=== PATIENT | female | born 1955 | race Caucasian/White ===

== ENCOUNTER 2017-04-30 14:33 | Emergency (ER) | payer BC, OTHER ==
[2017-04-30] MEDS ORDERED: Albuterol/Ipratropium 3.0-0.5 MG/3 ML Neb Soln NEB ONE (15:18)
--- NOTE | 2017-04-30 15:21 | EDM.PDOC ---
ED HPI GENERAL MEDICAL PROBLEM - General Stated Complaint: BAD COLD Time Seen by Provider: 04/30/17 14:33 Source of Information: Reports: Patient, Family History Limitations: Reports: No Limitations - History of Present Illness INITIAL COMMENTS - FREE TEXT/NARRATIVE: 61 y.o.w.pravin wentto the clinic because of a cold and was sent to the ed because her SBP was 170. An arrival, the pt c/o productive cough abd nasal congestions. No C/P or any other acute medical issues, Pt says, she never smoked or drank ETOH. BP 174/86 Pulse 76 Temp 36.6 RR 16 Pulse ox 97% on RA Onset: Today Onset Date: 04/30/17 Onset Time: 07:00 Duration: Hour(s):, Intermittent Location: Reports: Chest, Generalized Quality: Reports: Other (prod cough) Severity: Mild Improves with: Reports: Medication Worsens with: Reports: Other (when taking a deep breath) Context: Reports: Sick Contact Associated Symptoms: Reports: Cough, Shortness of Breath - Related Data Allergies Allergy/AdvReac Type Severity Reaction Status Date / Time No Known Allergies Allergy Verified 04/30/17 15:12 Home Meds: Home Meds Ciprofloxacin HCl [Cipro] 500 mg PO BID #20 tablet 04/30/17 [Rx] Past Medical History Cardiovascular History: Reports: Heart Failure, Other (See Below) Other Cardiovascular History: cardiomegaly Social & Family History - Tobacco Use Smoking Status *Q: Never Smoker - Alcohol Use Number of Drinks Per Day: N ED ROS GENERAL - Review of Systems Review Of Systems: See Below Constitutional: Reports: No Symptoms HEENT: Reports: No Symptoms Respiratory: Reports: Shortness of Breath, Cough, Sputum Cardiovascular: Reports: No Symptoms Endocrine: Reports: No Symptoms GI/Abdominal: Reports: No Symptoms : Reports: No Symptoms Musculoskeletal: Reports: No Symptoms Skin: Reports: No Symptoms Neurological: Reports: No Symptoms Psychiatric: Reports: No Symptoms Hematologic/Lymphatic: Reports: No Symptoms Immunologic: Reports: No Symptoms ED EXAM, GENERAL - Physical Exam Exam: See Below Exam Limited By: No Limitations General Appearance: Alert, WD/WN, Mild Distress Eye Exam: Bilateral Eye: Normal Inspection Ears: Normal External Exam Ear Exam: Bilateral Ear: Auricle Normal Nose: Normal Inspection, Normal Mucosa, No Blood Throat/Mouth: Normal Inspection, Normal Lips, Normal Teeth, Normal Gums, Normal Voice, No Airway Compromise Head: Atraumatic, Normocephalic Neck: Normal Inspection, Supple, Non-Tender Respiratory/Chest: No Respiratory Distress, Rhonchi, Wheezing Cardiovascular: Normal Peripheral Pulses, Regular Rate, Rhythm, No Edema, No Gallop Peripheral Pulses: 1+: Radial (R) GI/Abdominal: Normal Bowel Sounds, Soft, Non-Tender, No Organomegaly (Female) Exam: Deferred Rectal (Female) Exam: Deferred Back Exam: Normal Inspection, Full Range of Motion Extremities: Normal Inspection, Normal Range of Motion, Non-Tender, No Pedal Edema Neurological: Alert, Oriented, CN II-XII Intact, Normal Cognition Psychiatric: Normal Affect, Normal Mood Skin Exam: Warm, Dry, Intact, Normal Color, No Rash Lymphatic: No Adenopathy Course - Vital Signs Text/Narrative:: 61 y.o.w.f wentto the clinic because of a cold and was sent to the ed because her SBP was 170. An arrival, the pt c/o productive cough abd nasal congestions. No C/P or any other acute medical issues, Pt says, she never smoked or drank ETOH. BP 174/86 Pulse 76 Temp 36.6 RR 16 Pulse ox 97% on RA PE: WNWD W F with productive cough Imaging: CXR 2 view: NAD Labs: Influenza A neg. Impression Asthma, bronchitis, nasal congestion Tx: Duoneb, Cipro, Clonidine Reexam: Improved BP 155/87 on D/C Plan:D/C with instructions Last Recorded V/S: Last Vital Signs Temp 36.5 C 04/30/17 19:25 Pulse 76 04/30/17 19:25 Resp 17 04/30/17 19:25 BP 153/80 H 04/30/17 19:25 Pulse Ox 99 04/30/17 19:25 - Orders/Labs/Meds Orders: Active Orders 24 hr Category Date Time Status RT Aerosol Therapy [RC] ASDIRECTED Care 04/30/17 15:18 Active Chest 2V [CR] Stat Exams 04/30/17 15:18 Taken Meds: Medications Discontinued Medications Generic Name Dose Route Start Last Admin Trade Name Freq PRN Reason Stop Dose Admin Albuterol/Ipratropium 3 ml 04/30/17 15:18 04/30/17 15:30 Duoneb 3.0-0.5 Mg/3 Ml NEB 04/30/17 15:19 3 ml ONETIME ONE Administration Ciprofloxacin 500 mg 04/30/17 17:43 04/30/17 17:47 Ciprofloxacin Hcl PO 04/30/17 17:44 500 mg ONETIME ONE Administration Clonidine HCl 0.1 mg 04/30/17 17:43 04/30/17 17:48 Catapres PO 04/30/17 17:44 0.1 mg ONETIME STA Administration Trimethoprim/Sulfamethoxazole 1 tab 04/30/17 17:36 04/30/17 17:43 Septra Ds PO 04/30/17 17:37 Not Given ONETIME ONE Departure - Departure Time of Disposition: 17:46 Disposition: Home, Self-Care 01 Condition: Good Clinical Impression: Acute bronchitis Qualifiers: Bronchitis organism: other organism Qualified Code(s): J20.8 - Acute bronchitis due to other specified organisms Asthmatic bronchitis Qualifiers: Asthma severity: moderate - Discharge Information Prescriptions: Ciprofloxacin HCl [Cipro] 500 mg PO BID #20 tablet Instructions: Acute Bronchitis, [id number], Hypertension, [id number] Referrals: Naman Amor MD [Primary Care Provider] - Forms: ED Department Discharge, ED Return to Work/School Form Additional Instructions: Please take the meeds as recommended, please f/u with your PMD for BP recheck in 2 days, please come back if your symptoms get worse acutely - My Orders Last 24 Hours: My Active Orders 04/30/17 15:18 RT Aerosol Therapy [RC] ASDIRECTED Chest 2V [CR] Stat - Assessment/Plan Last 24 Hours: My Active Orders 04/30/17 15:18 RT Aerosol Therapy [RC] ASDIRECTED Chest 2V [CR] Stat
[2017-04-30] MEDS ORDERED: Sulfamethoxazole/Trimethoprim 800-160 MG Tab PO ONE (17:36)
[2017-04-30] MEDS ORDERED: Ciprofloxacin 500 MG Tab PO ONE (17:43)
[2017-04-30] MEDS ORDERED: cloNIDine 0.1 MG Tab PO STA (17:43)
[2017-04-30] MEDS ORDERED: Albuterol 8 GM Inhaler INH ONE (18:10)
[2017-04-30 19:26] VITALS: BP 153/80
--- NOTE | 2017-05-01 09:14 | CR ---
INDICATION: Cough. CHEST: PA and lateral views of the chest 04/30/2017, compared with 10/03/2009 and 10/30/2008, revealed slightly flattened diaphragm leaves, interdigitation of the right hemidiaphragm leaf, and prominent AP diameter, as well as mild hyperaeration, all suggesting the possibility of COPD - correlate clinically. The heart is normal in size and shape. The aorta is very minimally tortuous with minimal calcification in the arch of the aorta. No evidence of CHF is identified. An active infiltrate or effusion was not identified. Bridging hyperostotic change is noted in the mid thoracic to lower middle thoracic spine. Somewhat demineralized bony structures are suggested, which could be on the basis of osteoporosis and should be correlated clinically. There is also noted a mild dextroconcave scoliosis of the lower thoracic spine. IMPRESSION: 1. No definite acute process. 2. Possible progressive COPD - correlate clinically. 3. Minimal ASD aorta. 4. DJD spine, minimal scoliosis spine - possible osteoporosis - correlate clinically. MTDD
== END 2017-04-30 19:38 | disposition home or self-care (01) ==
LOC: FB.ED 14:33
DX: J20.8 Acute bronchitis due to other specified organisms (principal); J45.909 Unspecified asthma, uncomplicated
CPT/HCPCS: 71046; 87804; 94640; 99283; A9270; J7620

== ENCOUNTER 2017-08-03 08:00 | Inpatient (IN) | payer BC ==
[2017-08-14] MEDS ORDERED: Sodium Chloride 0.9% 10 ML Syringe FLUSH PRN (13:50)
[2017-08-14] MEDS ORDERED: cefOXitin 2 GM in Sodium Chloride 0.9% 100 ML IV ONE (13:50)
[2017-08-14] MEDS ORDERED: Lactated Ringers 1,000 ML IV SCH (14:00)
[2017-08-17] MEDS ORDERED: Lactated Ringers 1,000 ML IV SCH (09:30)
[2017-08-17] MEDS ORDERED: Sodium Chloride 0.9% 10 ML Syringe FLUSH PRN (09:30)
[2017-08-17] MEDS ORDERED: cefOXitin 1 GM Vial IV ONE ×2 (11:30→11:52)
[2017-08-17] MEDS ORDERED: Neostigmine Methylsulfate 1 MG/ML 5 ML Syringe IV ONE (11:52)
[2017-08-17] MEDS ORDERED: Midazolam 1 MG/ML 2 ML SDV IV ONE (11:52)
[2017-08-17] MEDS ORDERED: Propofol 200 MG/20 ML SDV IV ONE (11:52)
[2017-08-17] MEDS ORDERED: Glycopyrrolate 0.2 MG/ML 2 ML SDV IV ONE (11:52)
[2017-08-17] MEDS ORDERED: Succinylcholine 200 MG/10 ML MDV IV ONE (11:52)
[2017-08-17] MEDS ORDERED: Ketorolac 30 MG/ML SDV IVPUSH ONE (11:52)
[2017-08-17] MEDS ORDERED: Lactated Ringers 1,000 ML IV ONE (11:52)
[2017-08-17] MEDS ORDERED: HYDROmorphone 2 MG/ML SDV IV ONE (11:52)
[2017-08-17] MEDS ORDERED: Dexamethasone 4 MG/ML 5 ML MDV IVPUSH ONE (11:52)
[2017-08-17] MEDS ORDERED: Ondansetron 4 MG/2 ML SDV IVPUSH ONE (11:52)
[2017-08-17] MEDS ORDERED: diphenhydrAMINE 50 MG/ML SDV IVPUSH ONE (11:52)
[2017-08-17] MEDS ORDERED: Rocuronium 100 MG/10 ML MDV IV ONE (11:52)
[2017-08-17] MEDS ORDERED: fentaNYL 100 MCG/2 ML SDV IV ONE (11:52)
[2017-08-17] MEDS ORDERED: Morphine PF 10 MG/10 ML SDV EPIDUR ONE (11:52)
--- NOTE | 2017-08-17 12:36 | PREOP ---
ADMISSION DATE: 08/17/2017 This 61-year-old female presents today for sigmoid colectomy because of chronic diverticulitis. She is medically stable to proceed today. There has been no significant change in her health status since her recent examination. She has had cardiology evaluation with a recent normal stress test and is medically stable to proceed today. I have again discussed the proposed operative procedure with the patient, reviewed with her the anticipated course of the operation, and the shandra and postoperative expectations. She agrees to proceed today accepting the risks. /[id number] JULITO/DWIGHT
[2017-08-17] MEDS ORDERED: diphenhydrAMINE 50 MG/ML SDV IV PRN (13:44)
[2017-08-17] MEDS ORDERED: Nalbuphine 10 MG/1 ML Vial IVPUSH PRN (13:44)
[2017-08-17] MEDS ORDERED: Naloxone 0.4 MG/ML SDV IVPUSH PRN (13:44)
[2017-08-17] MEDS ORDERED: Ondansetron 4 MG/2 ML SDV IVPUSH PRN ×2 (13:44→15:48)
[2017-08-17] MEDS ORDERED: Ketorolac 15 MG/ML SDV IVPUSH PRN (13:50)
[2017-08-17] MEDS ORDERED: Promethazine 12.5 MG in Sodium Chloride 0.9% 50 ML IV PRN (13:50)
[2017-08-17] MEDS ORDERED: Morphine 10 MG/ML Syringe IVPUSH PRN (14:31)
--- NOTE | 2017-08-17 15:42 | PCM.OPNOTE ---
- General Post-Op/Procedure Note Date of Surgery/Procedure: 08/17/17 Operative Procedure(s): Left Colectomy with EEA Findings: Chronic Diverticulosis of the left colon Pre Op Diagnosis: chronic diverticulosis Post-Op Diagnosis: Same Anesthesia Technique: General ET Tube Primary Surgeon: Hiren Harmon Apprentice Instrument Technician: Rosalio Malik Reason Apprentice Instrument Technician Was Necessary: Assist with retraction and dissection and improve efficiency Pathology: Left Colon EBL in mLs: 100 Complications: None Condition: Good Free Text/Narrative:: Intake & Output 08/17/17 08/17/17 08/17/17 06:59 14:59 22:59 Intake Total 15 Balance 15
[2017-08-17] MEDS ORDERED: cefOXitin 2 GM in Sodium Chloride 0.9% 50 ML IV SCH (15:45)
[2017-08-17] MEDS: Lactated Ringers 1,000 ML IV SCH (17:40)
[2017-08-17] MEDS: cefOXitin 2 GM Vial IV SCH (17:48)
--- NOTE | 2017-08-17 21:06 | OR ---
DATE OF OPERATION: 08/17/2017 SURGEON: Hiren Harmon MD GOLDSMITH APPRENTICE: Rosalio Malik MD. The assistant finance manager was necessary for help with retraction and exposure, and to improve efficiency. PREOPERATIVE DIAGNOSIS: Chronic diverticulitis. POSTOPERATIVE DIAGNOSIS: Chronic diverticulitis. OPERATION PERFORMED: 1. Left colectomy. 2. End-to-end anastomosis. 3. Rigid sigmoidoscopy. INDICATIONS FOR SURGERY: This 61-year-old female has been having increasing difficulty with recurring bouts of diverticulitis of the left colon. She has had multiple episodes even within the last year. These do seem to be worsening, and she comes for surgical resection of this chronically diseased colon. FINDINGS: The patient had a moderate degree of diverticulosis with some findings of chronic disease in the left colon. This extended from the rectosigmoid junction up to the mid descending colon. The remainder of the colon and small bowel appeared normal. The patient's uterus and ovaries were atrophic. There were no palpable masses in the liver, and the remainder of the intraabdominal organs appeared normal. PROCEDURE IN DETAIL: The patient was taken to the operating room. She was given general endotracheal anesthesia and placed in a dorsal lithotomy position. The rectum was irrigated with dilute Betadine solution, and then, the abdomen and perineum were sterilely prepped and draped. A vertical lower midline abdominal incision was made. This was carried into the peritoneal cavity, and a wound protector was placed. The sigmoid colon was exposed, and using careful cautery dissection, the lateral peritoneal attachments of the sigmoid and descending colon were divided. Examination showed that the chronic diverticulitis involved enough of the colon that she would require takedown of the splenic flexure, and so this was carried out with careful blunt and cautery dissection. Once the left colon had been mobilized, the rectum was isolated and stapled across with a TA 55 stapler. The mesentery was then divided proximal to this point up to the mid descending colon, where it appeared that the disease stopped. The colon above this level appeared to be of good quality. During this dissection, the left ureter was carefully identified and preserved. The major vascular pedicles were doubly ligated with 0 Vicryl ties. The remainder of the dissection was carried out with cautery and single ties of 0 Vicryl of the smaller vessels. The colon was divided in the mid descending level after placing an anvil to a 29-Polish EEA stapler into the proximal colon. Once the descending colon had been stapled off, the center post of this anvil was brought through the wall of the colon adjacent to the staple line and a pursestring suture of 2-0 silk placed. An EEA anastomosis was then carried out between the descending colon and the rectal stump. After this had been performed, careful inspection of the anastomosis was carried out, and it was noted that the distal portion of the descending colon was somewhat dusky. There was no tension on the anastomosis, but as this area was observed, the circulation did not appear to be satisfactory, so it was felt that additional bowel would have to be removed. The rectal stump was then further dissected out and stapled across just below the original anastomosis with a curved 55 stapler cutter. Then, additional descending colon was resected up past the apparently ischemic region to an area near the splenic flexure where circulation appeared good. A small amount of additional mesentery was taken, allowing removal of the additional descending colon, and once again, the anvil of the 29-Polish EEA was placed into the proximal colon before the end of the colon near the splenic flexure. It was stapled off with a TA 55. The center post of the anvil was brought through the wall of the colon near the staple line, and a pursestring suture of 2-0 silk was placed. The rectal stump was examined, as it had been before, with a rigid sigmoidoscope. Air insufflation showed no sign of leaking at the staple line, and then, the EEA stapler was inserted into the rectum. The center post was brought out through the rectal wall near the staple line, and the stapler was then assembled, closed, and fired, creating an end-to-end anastomosis between the colon near the splenic flexure and the rectal stump. This anastomosis was carefully examined with the rigid sigmoidoscope and appeared to be of good quality, and air insufflation showed no sign of any leak at the anastomosis. The stapler retrieved 2 excellent-quality complete tissue donuts with this staple firing. The anastomosis was reinforced circumferentially with interrupted 2-0 silk sutures. After completion of this, careful inspection showed no tension on the anastomosis and visible evidence of good circulation all through the colon and rectal stump. The abdominal cavity was copiously irrigated with saline and then closed by approximating the midline fascia with a running #2 prolene and interrupted #1 PDS suture. Subcutaneous tissue was irrigated, and the skin was closed with skin josefina. A sterile dressing was placed. The patient was awakened, extubated, and taken from the operating room in satisfactory condition. ESTIMATED BLOOD LOSS: 100 mL. COMPLICATIONS: None. PROGNOSIS: Good. /[id number] JULITO/DWIGHT PENA
[2017-08-18] MEDS: cefOXitin 2 GM Vial IV SCH ×3 (00:09→12:30)
[2017-08-18] MEDS: Lactated Ringers 1,000 ML IV SCH ×3 (01:51→18:21)
--- NOTE | 2017-08-18 07:03 | PCM.SURGPN ---
- General Info Date of Service: 08/18/17 Date of Surgery/Procedure: 08/17/17 POD#: 1 Post-Op Diagnosis: Left Colectomy for Chronic Diverticulitis Functional Status: Reports: Other (Still having a lot of pain even with the epidural) - Review of Systems Pulmonary: Denies: Shortness of Breath Cardiovascular: Denies: Chest Pain Gastrointestinal: Reports: Other (c/o heartburn). Denies: Flatus, Nausea, Vomiting Musculoskeletal: Reports: Back Pain. Denies: Leg Pain - Patient Data Vitals - Most Recent: Last Vital Signs Temp 98.2 F 08/18/17 00:15 Pulse 72 08/18/17 00:15 Resp 20 08/18/17 00:15 BP 133/64 08/18/17 00:15 Pulse Ox 97 08/18/17 00:15 Weight - Most Recent: 145 lb I&O - Last 24 Hours: Intake & Output 08/17/17 08/17/17 08/18/17 14:59 22:59 06:59 Intake Total 15 709 990 Output Total 127 425 Balance 15 582 565 Lab Results Last 24 Hrs: Laboratory Results - last 24 hr 08/17/17 08/17/17 Range/Units 17:05 17:05 Hgb 12.7 (11.5-15.5) g/dL Hct 38.3 (30.0-51.3) % Potassium 4.1 (3.5-5.3) mmol/L Med Orders - Current: Current Medications Cefoxitin Sodium (Mefoxin) 2 gm IV Q6H [facility] Stop: 08/18/17 11:31 Last Admin: 08/18/17 05:55 Dose: 2 gm Diphenhydramine HCl (Benadryl) 25 mg IV ONETIME PRN PRN Reason: Pruritus Enoxaparin Sodium (Lovenox) 30 mg SUBCUT Q24H [facility] Promethazine HCl 12.5 mg/ (Sodium Chloride) 50.5 mls @ 200 mls/hr IV Q6H PRN PRN Reason: Nausea/Vomiting Lactated Ringer's (Ringers, Lactated) 1,000 mls @ 125 mls/hr IV ASDIRECTED [facility] Last Admin: 08/18/17 01:51 Dose: 125 mls/hr Ketorolac Tromethamine (Toradol) 15 mg IVPUSH Q6H PRN PRN Reason: Pain Stop: 08/22/17 13:55 Morphine Sulfate (Morphine) 2 mg IVPUSH Q1H PRN PRN Reason: PAIN Nalbuphine HCl (Nubain) 10 mg IVPUSH Q1H PRN PRN Reason: Pruritus Naloxone HCl (Narcan) 0.1 mg IVPUSH ONETIME PRN PRN Reason: Oversedation Ondansetron HCl (Zofran) 4 mg IVPUSH Q6H PRN PRN Reason: Nausea/Vomiting Sodium Chloride (Saline Flush) 10 ml FLUSH ASDIRECTED PRN PRN Reason: Keep Vein Open Discontinued Medications Cefoxitin Sodium (Mefoxin) 2 gm IV ONETIME ONE Stop: 08/17/17 11:31 Last Admin: 08/17/17 11:57 Dose: 2 gm Lactated Ringer's (Ringers, Lactated) 1,000 mls @ 125 mls/hr IV ASDIRECTED DELL Lactated Ringer's (Ringers, Lactated) 1,000 mls @ 125 mls/hr IV ASDIRECTED [facility] Last Admin: 08/17/17 11:00 Dose: 125 mls/hr Ondansetron HCl (Zofran) 4 mg IVPUSH Q6H PRN PRN Reason: Nausea/Vomiting Sodium Chloride (Saline Flush) 10 ml FLUSH ASDIRECTED PRN PRN Reason: Keep Vein Open - Exam Wound/Incisions: Healing Well, Drainage (minimal). No: Erythema General: Alert, Oriented Lungs: Normal Respiratory Effort GI/Abdominal Exam: Soft, No Distention, Tender (moderate on left side) Extremities: Non-Tender, No Pedal Edema - Problem List Review Problem List Initiated/Reviewed/Updated: Yes - My Orders Last 24 Hours: Active Orders 24 hr Category Date Time Status Patient Status [ADT] Routine ADT 08/17/17 15:43 Active Antiembolic Devices [RC] .Routine Care 08/17/17 15:48 Active Communication Order [RC] ASDIRECTED Care 08/17/17 13:44 Active Communication Order [RC] ASDIRECTED Care 08/17/17 13:44 Active Communication Order [RC] ASDIRECTED Care 08/17/17 13:44 Active Intake and Output [RC] 02,06,10,14,18,22 Care 08/17/17 13:44 Active Overnight Pulse Oximetry [RC] Click to Edit Care 08/17/17 14:11 Active Oxygen Therapy [RC] PRN Care 08/17/17 13:44 Active Pasero Opioid Induced Sedation [RC] 08,16,00 Care 08/17/17 13:44 Active RT Incentive Spirometry [RC] Q1HWA Care 08/17/17 15:42 Active Up With Assistance [RC] ASDIRECTED Care 08/17/17 15:42 Active VTE/DVT Education [RC] Click to Edit Care 08/17/17 15:48 Active Vital Signs [RC] PER UNIT ROUTINE Care 08/17/17 15:43 Active Nothing Per Oral Diet [DIET] Diet 08/17/17 Lunch Active HEMOGLOBIN/HEMATOCRIT,HH [HEME] AM Lab 08/18/17 05:11 Ordered POTASSIUM,K [CHEM] AM Lab 08/18/17 05:11 Ordered Enoxaparin [Lovenox] Med 08/18/17 09:00 Active 30 mg SUBCUT Q24H Ketorolac [Toradol] Med 08/17/17 13:50 Active 15 mg IVPUSH Q6H PRN Lactated Ringers [Ringers, Lactated] 1,000 ml Med 08/17/17 15:45 Active IV ASDIRECTED Morphine Med 08/17/17 14:31 Active 2 mg IVPUSH Q1H PRN Nalbuphine [Nubain] Med 08/17/17 13:44 Active 10 mg IVPUSH Q1H PRN Naloxone [Narcan] Med 08/17/17 13:44 Active 0.1 mg IVPUSH ONETIME PRN Ondansetron [Zofran] Med 08/17/17 15:48 Active 4 mg IVPUSH Q6H PRN Promethazine [Phenergan] 12.5 mg Med 08/17/17 13:50 Active Sodium Chloride 0.9% [Normal Saline] 50 ml IV Q6H Sodium Chloride 0.9% [Saline Flush] Med 08/17/17 09:30 Active 10 ml FLUSH ASDIRECTED PRN cefOXitin [Mefoxin] Med 08/17/17 17:30 Active 2 gm IV Q6H diphenhydrAMINE [Benadryl] Med 08/17/17 13:44 Active 25 mg IV ONETIME PRN DVT/VTE Prophylaxis Reflex [OM.PC] Per Unit Routine Ot 08/17/17 15:48 Ordered Do Not Administer Anticoagulant Meds [AST] Per Unit Ot 08/17/17 13:44 Ordered Routine Do Not Administer IV Narcs or Sedatives [AST] Per Unit Ot 08/17/17 13:44 Ordered Routine Peripheral IV Insertion Adult [OM.PC] Routine Ot 08/17/17 09:30 Ordered Pulse Oximetry Continuous Monitoring [OM.PC] Routine Ot 08/17/17 14:10 Ordered Sequential Compression Device [OM.PC] Routine Ot 08/17/17 09:30 Ordered Medication Orders Cefoxitin Sodium (Mefoxin) 2 gm IV Q6H [facility] Stop: 08/18/17 11:31 Last Admin: 08/18/17 05:55 Dose: 2 gm Admin: 08/18/17 00:09 Dose: 2 gm Admin: 08/17/17 17:48 Dose: 2 gm Diphenhydramine HCl (Benadryl) 25 mg IV ONETIME PRN PRN Reason: Pruritus Enoxaparin Sodium (Lovenox) 30 mg SUBCUT Q24H [facility] Promethazine HCl 12.5 mg/ (Sodium Chloride) 50.5 mls @ 200 mls/hr IV Q6H PRN PRN Reason: Nausea/Vomiting Lactated Ringer's (Ringers, Lactated) 1,000 mls @ 125 mls/hr IV ASDIRECTED [facility] Last Admin: 08/18/17 01:51 Dose: 125 mls/hr Infusion: 08/18/17 01:40 Dose: 125 mls/hr Admin: 08/17/17 17:40 Dose: 125 mls/hr Ketorolac Tromethamine (Toradol) 15 mg IVPUSH Q6H PRN PRN Reason: Pain Stop: 08/22/17 13:55 Morphine Sulfate (Morphine) 2 mg IVPUSH Q1H PRN PRN Reason: PAIN Nalbuphine HCl (Nubain) 10 mg IVPUSH Q1H PRN PRN Reason: Pruritus Naloxone HCl (Narcan) 0.1 mg IVPUSH ONETIME PRN PRN Reason: Oversedation Ondansetron HCl (Zofran) 4 mg IVPUSH Q6H PRN PRN Reason: Nausea/Vomiting Sodium Chloride (Saline Flush) 10 ml FLUSH ASDIRECTED PRN PRN Reason: Keep Vein Open - Assessment Assessment (Free Text/Narrative):: POD#1 Left Colectomy - pain not well controlled heartburn vs stable uo good - Plan Plan (Free Text/Narrative):: Change Toradol to routine encouraged ambulation and IS continue IV and support
[2017-08-18] MEDS ORDERED: Aluminum Hydroxide/Magnesium Hydroxide Susp 30 ML Cup PO PRN (07:04)
[2017-08-18] MEDS: Ketorolac 15 MG/ML SDV IVPUSH SCH ×3 (07:10→20:10)
[2017-08-18] MEDS ORDERED: Morphine PF 10 MG/10 ML SDV EPIDUR ONE ×2 (08:00→09:26)
[2017-08-18] MEDS ORDERED: fentaNYL 100 MCG/2 ML SDV EPIDUR ONE (08:00)
[2017-08-18] MEDS: Pantoprazole 40 MG Vial IVPUSH SCH (08:21)
[2017-08-18] MEDS: Enoxaparin 30 MG/0.3 ML Syringe SUBCUT SCH (08:30)
[2017-08-18] MEDS ORDERED: ROPIVACAINE EPIDUR ONE (09:26)
[2017-08-18] MEDS ORDERED: FENTANYL EPIDUR ONE (09:26)
--- NOTE | 2017-08-18 10:10 | PCM.PN ---
- General Info Date of Service: 08/18/17 Admission Dx/Problem (Free Text): 08-18-17 2215 please refer to anesthesia record for epidural pain management note and meds given.Patient rating pain at zero out of ten after injection.pain has been 9 out of ten.Report given to Shruthi Winter including time of peak side effects at 1530 - Patient Data Vitals - Most Recent: Last Vital Signs Temp 98.2 F 08/18/17 00:15 Pulse 72 08/18/17 05:30 Resp 20 08/18/17 05:30 BP 138/69 08/18/17 05:30 Pulse Ox 97 08/18/17 07:10 Weight - Most Recent: 145 lb I&O - Last 24 Hours: Intake & Output 08/17/17 08/18/17 08/18/17 22:59 06:59 14:59 Intake Total 709 990 Output Total 127 425 Balance 582 565 Lab Results Last 24 Hours: Laboratory Results - last 24 hr 08/17/17 08/17/17 08/18/17 Range/Units 17:05 17:05 07:03 Hgb 12.7 11.6 (11.5-15.5) g/dL Hct 38.3 34.6 (30.0-51.3) % Potassium 4.1 (3.5-5.3) mmol/L 08/18/17 Range/Units 07:03 Hgb (11.5-15.5) g/dL Hct (30.0-51.3) % Potassium 4.3 (3.5-5.3) mmol/L Med Orders - Current: Current Medications Al Hydroxide/Mg Hydroxide (Mag-Al Susp) 30 ml PO Q4H PRN PRN Reason: Heartburn Last Admin: 08/18/17 07:46 Dose: 30 ml Cefoxitin Sodium (Mefoxin) 2 gm IV Q6H [facility] Stop: 08/18/17 11:31 Last Admin: 08/18/17 05:55 Dose: 2 gm Diphenhydramine HCl (Benadryl) 25 mg IV ONETIME PRN PRN Reason: Pruritus Enoxaparin Sodium (Lovenox) 30 mg SUBCUT Q24H [facility] Last Admin: 08/18/17 08:30 Dose: 30 mg Promethazine HCl 12.5 mg/ (Sodium Chloride) 50.5 mls @ 200 mls/hr IV Q6H PRN PRN Reason: Nausea/Vomiting Lactated Ringer's (Ringers, Lactated) 1,000 mls @ 125 mls/hr IV ASDIRECTED [facility] Last Admin: 08/18/17 01:51 Dose: 125 mls/hr Ketorolac Tromethamine (Toradol) 15 mg IVPUSH Q6H [facility] Last Admin: 08/18/17 07:10 Dose: 15 mg Morphine Sulfate (Morphine) 2 mg IVPUSH Q1H PRN PRN Reason: PAIN Last Admin: 08/18/17 08:29 Dose: 2 mg Nalbuphine HCl (Nubain) 10 mg IVPUSH Q1H PRN PRN Reason: Pruritus Naloxone HCl (Narcan) 0.1 mg IVPUSH ONETIME PRN PRN Reason: Oversedation Ondansetron HCl (Zofran) 4 mg IVPUSH Q6H PRN PRN Reason: Nausea/Vomiting Pantoprazole Sodium (Protonix Iv) 40 mg IVPUSH DAILY [facility] Last Admin: 08/18/17 08:21 Dose: 40 mg Sodium Chloride (Saline Flush) 10 ml FLUSH ASDIRECTED PRN PRN Reason: Keep Vein Open Discontinued Medications Cefoxitin Sodium (Mefoxin) 2 gm IV ONETIME ONE Stop: 08/17/17 11:31 Last Admin: 08/17/17 11:57 Dose: 2 gm Lactated Ringer's (Ringers, Lactated) 1,000 mls @ 125 mls/hr IV ASDIRECTED [facility] Lactated Ringer's (Ringers, Lactated) 1,000 mls @ 125 mls/hr IV ASDIRECTED [facility] Last Admin: 08/17/17 11:00 Dose: 125 mls/hr Ketorolac Tromethamine (Toradol) 15 mg IVPUSH Q6H PRN PRN Reason: Pain Stop: 08/22/17 13:55 Ondansetron HCl (Zofran) 4 mg IVPUSH Q6H PRN PRN Reason: Nausea/Vomiting Sodium Chloride (Saline Flush) 10 ml FLUSH ASDIRECTED PRN PRN Reason: Keep Vein Open - Problem List Review Problem List Initiated/Reviewed/Updated: No - My Orders Last 24 Hours: My Active Orders 08/17/17 13:44 Communication Order [RC] ASDIRECTED Communication Order [RC] ASDIRECTED Communication Order [RC] ASDIRECTED Intake and Output [RC] 02,06,10,14,18,22 Oxygen Therapy [RC] PRN Pasero Opioid Induced Sedation [RC] 08,16,00 Nalbuphine [Nubain] 10 mg IVPUSH Q1H PRN Naloxone [Narcan] 0.1 mg IVPUSH ONETIME PRN diphenhydrAMINE [Benadryl] 25 mg IV ONETIME PRN Do Not Administer Anticoagulant Meds [AST] Per Unit Routine Do Not Administer IV Narcs or Sedatives [AST] Per Unit Routine 08/17/17 13:50 Promethazine [Phenergan] 12.5 mg Sodium Chloride 0.9% [Normal Saline] 50 ml IV Q6H 08/17/17 14:10 Pulse Oximetry Continuous Monitoring [OM.PC] Routine 08/17/17 14:11 Overnight Pulse Oximetry [RC] Click to Edit 08/17/17 14:31 Morphine 2 mg IVPUSH Q1H PRN
[2017-08-19] MEDS: Ketorolac 15 MG/ML SDV IVPUSH SCH ×4 (02:01→19:56)
[2017-08-19] MEDS: Lactated Ringers 1,000 ML IV SCH ×3 (02:23→21:09)
--- NOTE | 2017-08-19 07:41 | PCM.SURGPN ---
- General Info Date of Service: 08/19/17 Date of Surgery/Procedure: 08/17/17 POD#: 2 Post-Op Diagnosis: Chronic Diverticulitis Functional Status: Reports: Pain Controlled (improved control with Toradol and increased epidural dose) - Review of Systems Pulmonary: Reports: No Symptoms (doing better with IS) Gastrointestinal: Denies: Flatus Musculoskeletal: Denies: Leg Pain - Patient Data Vitals - Most Recent: Last Vital Signs Temp 98.1 F 08/19/17 05:30 Pulse 60 08/19/17 05:30 Resp 16 08/19/17 05:30 BP 108/60 08/19/17 05:30 Pulse Ox 97 08/19/17 05:30 Weight - Most Recent: 145 lb I&O - Last 24 Hours: Intake & Output 08/18/17 08/19/17 08/19/17 22:59 06:59 14:59 Intake Total 1060 941 Output Total 525 610 Balance 535 331 Lab Results Last 24 Hrs: Laboratory Results - last 24 hr 08/18/17 08/18/17 08/19/17 Range/Units 07:03 07:03 06:05 Hgb 11.6 (11.5-15.5) g/dL Hct 34.6 (30.0-51.3) % Potassium 4.3 4.2 (3.5-5.3) mmol/L Med Orders - Current: Current Medications Al Hydroxide/Mg Hydroxide (Mag-Al Susp) 30 ml PO Q4H PRN PRN Reason: Heartburn Last Admin: 08/18/17 07:46 Dose: 30 ml Diphenhydramine HCl (Benadryl) 25 mg IV ONETIME PRN PRN Reason: Pruritus Enoxaparin Sodium (Lovenox) 30 mg SUBCUT Q24H [facility] Last Admin: 08/18/17 08:30 Dose: 30 mg Promethazine HCl 12.5 mg/ (Sodium Chloride) 50.5 mls @ 200 mls/hr IV Q6H PRN PRN Reason: Nausea/Vomiting Lactated Ringer's (Ringers, Lactated) 1,000 mls @ 100 mls/hr IV ASDIRECTED [facility] Last Admin: 08/19/17 02:23 Dose: 125 mls/hr Ketorolac Tromethamine (Toradol) 15 mg IVPUSH Q6H [facility] Stop: 08/23/17 02:01 Last Admin: 08/19/17 02:01 Dose: 15 mg Morphine Sulfate (Morphine) 2 mg IVPUSH Q1H PRN PRN Reason: PAIN Last Admin: 08/18/17 08:29 Dose: 2 mg Nalbuphine HCl (Nubain) 10 mg IVPUSH Q1H PRN PRN Reason: Pruritus Naloxone HCl (Narcan) 0.1 mg IVPUSH ONETIME PRN PRN Reason: Oversedation Ondansetron HCl (Zofran) 4 mg IVPUSH Q6H PRN PRN Reason: Nausea/Vomiting Pantoprazole Sodium (Protonix Iv) 40 mg IVPUSH DAILY [facility] Last Admin: 08/18/17 08:21 Dose: 40 mg Sodium Chloride (Saline Flush) 10 ml FLUSH ASDIRECTED PRN PRN Reason: Keep Vein Open Discontinued Medications Cefoxitin Sodium (Mefoxin) 2 gm IV ONETIME ONE Stop: 08/17/17 11:31 Last Admin: 08/17/17 11:57 Dose: 2 gm Cefoxitin Sodium (Mefoxin) 2 gm IV Q6H [facility] Stop: 08/18/17 11:31 Last Admin: 08/18/17 12:30 Dose: 2 gm Lactated Ringer's (Ringers, Lactated) 1,000 mls @ 125 mls/hr IV ASDIRECTED [facility] Lactated Ringer's (Ringers, Lactated) 1,000 mls @ 125 mls/hr IV ASDIRECTED [facility] Last Admin: 08/17/17 11:00 Dose: 125 mls/hr Ketorolac Tromethamine (Toradol) 15 mg IVPUSH Q6H PRN PRN Reason: Pain Stop: 08/22/17 13:55 Ondansetron HCl (Zofran) 4 mg IVPUSH Q6H PRN PRN Reason: Nausea/Vomiting Sodium Chloride (Saline Flush) 10 ml FLUSH ASDIRECTED PRN PRN Reason: Keep Vein Open - Exam Wound/Incisions: Healing Well, No Drainage. No: Erythema General: Alert, Oriented Lungs: Normal Respiratory Effort GI/Abdominal Exam: Soft, Non-Tender (except mild near incision) Extremities: Non-Tender, No Pedal Edema - Problem List Review Problem List Initiated/Reviewed/Updated: Yes - My Orders Last 24 Hours: Active Orders 24 hr Category Date Time Status Communication Order [] 08,16,00 Care 08/18/17 14:24 Active Remove Valdes Catheter [Urinary Catheter Removal] [] Care 08/19/17 07:35 Ordered Per Unit Routine Alum Hydroxide/Mag Hydroxide [Mag-Al Susp] Med 08/18/17 07:04 Active 30 ml PO Q4H PRN Enoxaparin [Lovenox] Med 08/18/17 09:00 Active 30 mg SUBCUT Q24H Ketorolac [Toradol] Med 08/18/17 08:00 Active 15 mg IVPUSH Q6H Pantoprazole [ProTONIX IV] Med 08/18/17 09:00 Active 40 mg IVPUSH DAILY Medication Orders Al Hydroxide/Mg Hydroxide (Mag-Al Susp) 30 ml PO Q4H PRN PRN Reason: Heartburn Last Admin: 08/18/17 07:46 Dose: 30 ml Diphenhydramine HCl (Benadryl) 25 mg IV ONETIME PRN PRN Reason: Pruritus Enoxaparin Sodium (Lovenox) 30 mg SUBCUT Q24H [facility] Last Admin: 08/18/17 08:30 Dose: 30 mg Promethazine HCl 12.5 mg/ (Sodium Chloride) 50.5 mls @ 200 mls/hr IV Q6H PRN PRN Reason: Nausea/Vomiting Lactated Ringer's (Ringers, Lactated) 1,000 mls @ 100 mls/hr IV ASDIRECTED [facility] Last Admin: 08/19/17 02:23 Dose: 125 mls/hr Infusion: 08/19/17 02:21 Dose: 125 mls/hr Admin: 08/18/17 18:21 Dose: 125 mls/hr Infusion: 08/18/17 18:21 Dose: 125 mls/hr Admin: 08/18/17 10:21 Dose: 125 mls/hr Infusion: 08/18/17 09:51 Dose: 125 mls/hr Admin: 08/18/17 01:51 Dose: 125 mls/hr Infusion: 08/18/17 01:40 Dose: 125 mls/hr Admin: 08/17/17 17:40 Dose: 125 mls/hr Ketorolac Tromethamine (Toradol) 15 mg IVPUSH Q6H [facility] Stop: 08/23/17 02:01 Last Admin: 08/19/17 02:01 Dose: 15 mg Admin: 08/18/17 20:10 Dose: 15 mg Admin: 08/18/17 14:36 Dose: 15 mg Admin: 08/18/17 07:10 Dose: 15 mg Morphine Sulfate (Morphine) 2 mg IVPUSH Q1H PRN PRN Reason: PAIN Last Admin: 08/18/17 08:29 Dose: 2 mg Nalbuphine HCl (Nubain) 10 mg IVPUSH Q1H PRN PRN Reason: Pruritus Naloxone HCl (Narcan) 0.1 mg IVPUSH ONETIME PRN PRN Reason: Oversedation Ondansetron HCl (Zofran) 4 mg IVPUSH Q6H PRN PRN Reason: Nausea/Vomiting Pantoprazole Sodium (Protonix Iv) 40 mg IVPUSH DAILY [facility] Last Admin: 08/18/17 08:21 Dose: 40 mg Sodium Chloride (Saline Flush) 10 ml FLUSH ASDIRECTED PRN PRN Reason: Keep Vein Open - Assessment Assessment (Free Text/Narrative):: POD#2 Left Colectomy - doing well Afebrile, UO good Labs good wound healing well - Plan Plan (Free Text/Narrative):: Will slow IV rate DC Valdes Continuing Epidural for pain control Continue Ambulation and IS
--- NOTE | 2017-08-19 08:33 | PCM.SN ---
- Free Text/Narrative Note: 0805,patient states she is having no pain and has not been itching from epidural narcotic.After negative aspiration injected epidural with Duramorph 6 mgs,fentanyl 2 cc's and normal saline PF 2 cc's.Gave report to Shruthi Winter including peak side effects of fentanyl and Duramorph.SAO2 monitor is on patient.
[2017-08-19] MEDS: Enoxaparin 30 MG/0.3 ML Syringe SUBCUT SCH (08:51)
[2017-08-19] MEDS: Pantoprazole 40 MG Vial IVPUSH SCH (08:55)
[2017-08-20] MEDS: Ketorolac 15 MG/ML SDV IVPUSH SCH ×4 (02:00→20:27)
[2017-08-20] MEDS: Lactated Ringers 1,000 ML IV SCH (07:08)
--- NOTE | 2017-08-20 07:20 | PCM.SURGPN ---
- General Info Date of Service: 08/20/17 Date of Surgery/Procedure: 08/17/17 POD#: 3 Post-Op Diagnosis: Chronic Diverticulitis Functional Status: Reports: Pain Controlled - Review of Systems General: Denies: Fever, Chills Pulmonary: Reports: No Symptoms Gastrointestinal: Reports: Flatus (also had small bm) Genitourinary: Reports: No Symptoms Musculoskeletal: Denies: Leg Pain - Patient Data Vitals - Most Recent: Last Vital Signs Temp 98.3 F 08/20/17 04:00 Pulse 58 L 08/20/17 04:00 Resp 16 08/20/17 04:00 BP 135/67 08/20/17 04:00 Pulse Ox 93 L 08/20/17 04:00 Weight - Most Recent: 145 lb I&O - Last 24 Hours: Intake & Output 08/19/17 08/20/17 08/20/17 22:59 06:59 14:59 Intake Total 758 838 Output Total 450 1200 Balance 308 -362 Med Orders - Current: Current Medications Al Hydroxide/Mg Hydroxide (Mag-Al Susp) 30 ml PO Q4H PRN PRN Reason: Heartburn Last Admin: 08/18/17 07:46 Dose: 30 ml Diphenhydramine HCl (Benadryl) 25 mg IV ONETIME PRN PRN Reason: Pruritus Enoxaparin Sodium (Lovenox) 30 mg SUBCUT Q24H [facility] Last Admin: 08/19/17 08:51 Dose: 30 mg Promethazine HCl 12.5 mg/ (Sodium Chloride) 50.5 mls @ 200 mls/hr IV Q6H PRN PRN Reason: Nausea/Vomiting Lactated Ringer's (Ringers, Lactated) 1,000 mls @ 50 mls/hr IV ASDIRECTED [facility] Last Infusion: 08/20/17 07:12 Dose: 50 mls/hr Ketorolac Tromethamine (Toradol) 15 mg IVPUSH Q6H [facility] Stop: 08/23/17 02:01 Last Admin: 08/20/17 02:00 Dose: 15 mg Morphine Sulfate (Morphine) 2 mg IVPUSH Q1H PRN PRN Reason: PAIN Last Admin: 08/18/17 08:29 Dose: 2 mg Nalbuphine HCl (Nubain) 10 mg IVPUSH Q1H PRN PRN Reason: Pruritus Naloxone HCl (Narcan) 0.1 mg IVPUSH ONETIME PRN PRN Reason: Oversedation Ondansetron HCl (Zofran) 4 mg IVPUSH Q6H PRN PRN Reason: Nausea/Vomiting Pantoprazole Sodium (Protonix Iv) 40 mg IVPUSH DAILY [facility] Last Admin: 08/19/17 08:55 Dose: 40 mg Sodium Chloride (Saline Flush) 10 ml FLUSH ASDIRECTED PRN PRN Reason: Keep Vein Open Discontinued Medications Cefoxitin Sodium (Mefoxin) 2 gm IV ONETIME ONE Stop: 08/17/17 11:31 Last Admin: 08/17/17 11:57 Dose: 2 gm Cefoxitin Sodium (Mefoxin) 2 gm IV Q6H [facility] Stop: 08/18/17 11:31 Last Admin: 08/18/17 12:30 Dose: 2 gm Cefoxitin Sodium (Mefoxin) 2 gm IV .STK-MED ONE Stop: 08/17/17 11:53 Dexamethasone (Dexamethasone) 8 mg IVPUSH .STK-MED ONE Stop: 08/17/17 11:53 Diphenhydramine HCl (Benadryl) 25 mg IVPUSH .STK-MED ONE Stop: 08/17/17 11:53 Fentanyl (Sublimaze) 100 mcg EPIDUR .STK-MED ONE Stop: 08/18/17 08:01 Fentanyl (Sublimaze) 200 mcg IV .STK-MED ONE Stop: 08/17/17 11:53 Glycopyrrolate (Glycopyrrolate) 0.4 mg IV .STK-MED ONE Stop: 08/17/17 11:53 Hydromorphone HCl (Dilaudid) 1 mg IV .STK-MED ONE Stop: 08/17/17 11:53 Lactated Ringer's (Ringers, Lactated) 1,000 mls @ 125 mls/hr IV ASDIRECTED [facility] Lactated Ringer's (Ringers, Lactated) 1,000 mls @ 125 mls/hr IV ASDIRECTED [facility] Last Admin: 08/17/17 11:00 Dose: 125 mls/hr Fentanyl 100 mcg/ Ropivacaine 12 mls @ as directed EPIDUR .STK-MED ONE Stop: 08/18/17 09:27 Lactated Ringer's (Ringers, Lactated) 1,000 mls @ as directed IV .STK-MED ONE Stop: 08/17/17 11:53 Ketorolac Tromethamine (Toradol) 15 mg IVPUSH Q6H PRN PRN Reason: Pain Stop: 08/22/17 13:55 Ketorolac Tromethamine (Toradol) 30 mg IVPUSH .STK-MED ONE Stop: 08/17/17 11:53 Midazolam HCl (Versed 1 Mg/Ml) 2 mg IV .STK-MED ONE Stop: 08/17/17 11:53 Morphine Sulfate (Duramorph Pf) 6 mg EPIDUR .STK-MED ONE Stop: 08/18/17 08:01 Morphine Sulfate (Duramorph Pf) 6 mg EPIDUR .STK-MED ONE Stop: 08/18/17 09:27 Morphine Sulfate (Duramorph Pf) 4 mg EPIDUR .STK-MED ONE Stop: 08/17/17 11:53 Neostigmine Methylsulfate (Neostigmine) 3 mg IV .STK-MED ONE Stop: 08/17/17 11:53 Ondansetron HCl (Zofran) 4 mg IVPUSH Q6H PRN PRN Reason: Nausea/Vomiting Ondansetron HCl (Zofran) 4 mg IVPUSH .STK-MED ONE Stop: 08/17/17 11:53 Propofol (Diprivan 20 Ml) 150 mg IV .STK-MED ONE Stop: 08/17/17 11:53 Rocuronium [place] (Zemuron) 65 mg IV .STK-MED ONE Stop: 08/17/17 11:53 Sodium Chloride (Saline Flush) 10 ml FLUSH ASDIRECTED PRN PRN Reason: Keep Vein Open Succinylcholine Chloride (Quelicin) 100 mg IV .STK-MED ONE Stop: 08/17/17 11:53 - Exam Wound/Incisions: Healing Well. No: Erythema General: Alert, Oriented Lungs: Normal Respiratory Effort GI/Abdominal Exam: Soft, Tender (mild diffuse tenderness) Extremities: Non-Tender, No Pedal Edema - Problem List Review Problem List Initiated/Reviewed/Updated: Yes - My Orders Last 24 Hours: Active Orders 24 hr Category Date Time Status Clear Liquid Diet [DIET] Diet 08/20/17 Breakfast Ordered Medication Orders Al Hydroxide/Mg Hydroxide (Mag-Al Susp) 30 ml PO Q4H PRN PRN Reason: Heartburn Last Admin: 08/18/17 07:46 Dose: 30 ml Diphenhydramine HCl (Benadryl) 25 mg IV ONETIME PRN PRN Reason: Pruritus Enoxaparin Sodium (Lovenox) 30 mg SUBCUT Q24H [facility] Last Admin: 08/19/17 08:51 Dose: 30 mg Admin: 08/18/17 08:30 Dose: 30 mg Promethazine HCl 12.5 mg/ (Sodium Chloride) 50.5 mls @ 200 mls/hr IV Q6H PRN PRN Reason: Nausea/Vomiting Lactated Ringer's (Ringers, Lactated) 1,000 mls @ 50 mls/hr IV ASDIRECTED [facility] Last Infusion: 08/20/17 07:12 Dose: 50 mls/hr Admin: 08/20/17 07:08 Dose: 125 mls/hr Infusion: 08/20/17 05:09 Dose: 125 mls/hr Admin: 08/19/17 21:09 Dose: 125 mls/hr Infusion: 08/19/17 19:08 Dose: 125 mls/hr Admin: 08/19/17 11:08 Dose: 125 mls/hr Infusion: 08/19/17 11:08 Dose: 125 mls/hr Admin: 08/19/17 02:23 Dose: 125 mls/hr Infusion: 08/19/17 02:21 Dose: 125 mls/hr Admin: 08/18/17 18:21 Dose: 125 mls/hr Infusion: 08/18/17 18:21 Dose: 125 mls/hr Admin: 08/18/17 10:21 Dose: 125 mls/hr Infusion: 08/18/17 09:51 Dose: 125 mls/hr Admin: 08/18/17 01:51 Dose: 125 mls/hr Infusion: 08/18/17 01:40 Dose: 125 mls/hr Admin: 08/17/17 17:40 Dose: 125 mls/hr Ketorolac Tromethamine (Toradol) 15 mg IVPUSH Q6H [facility] Stop: 08/23/17 02:01 Last Admin: 08/20/17 02:00 Dose: 15 mg Admin: 05/23/18 19:56 Dose: 15 mg Admin: 08/19/17 14:17 Dose: 15 mg Admin: 08/19/17 08:52 Dose: 15 mg Admin: 08/19/17 02:01 Dose: 15 mg Admin: 08/18/17 20:10 Dose: 15 mg Admin: 08/18/17 14:36 Dose: 15 mg Admin: 08/18/17 07:10 Dose: 15 mg Morphine Sulfate (Morphine) 2 mg IVPUSH Q1H PRN PRN Reason: PAIN Last Admin: 08/18/17 08:29 Dose: 2 mg Nalbuphine HCl (Nubain) 10 mg IVPUSH Q1H PRN PRN Reason: Pruritus Naloxone HCl (Narcan) 0.1 mg IVPUSH ONETIME PRN PRN Reason: Oversedation Ondansetron HCl (Zofran) 4 mg IVPUSH Q6H PRN PRN Reason: Nausea/Vomiting Pantoprazole Sodium (Protonix Iv) 40 mg IVPUSH DAILY [facility] Last Admin: 08/19/17 08:55 Dose: 40 mg Admin: 08/18/17 08:21 Dose: 40 mg Sodium Chloride (Saline Flush) 10 ml FLUSH ASDIRECTED PRN PRN Reason: Keep Vein Open - Assessment Assessment (Free Text/Narrative):: POD#3 Left Colectomy - doing well GI function beginning to return. pain controlled well with epidural and Toradol Path report showed benign disease and has been discussed with patient - Plan Plan (Free Text/Narrative):: Clear Liquid diet slow IV
[2017-08-20] MEDS ORDERED: Morphine PF 10 MG/10 ML SDV EPIDUR ONE (07:30)
[2017-08-20] MEDS ORDERED: fentaNYL 100 MCG/2 ML SDV EPIDUR ONE (07:30)
--- NOTE | 2017-08-20 07:41 | PCM.SN ---
- Free Text/Narrative Note: 0730,Patient states she is having no pain and has had no itching.After negative aspiration of epidural cathedar,Duramorph 6mgs,fentanyl 2cc's and saline 0.9%PF was injected.The cathedar was removed and tip entact ,skin looked good at site.Instructed Scarlett Veloz RN that patient should not have Lovenevx untill 0930 and that the peak side effects for Fentanyl will be 1000 and for Duramorph 1330.
[2017-08-20] MEDS: Pantoprazole 40 MG Vial IVPUSH SCH (09:59)
[2017-08-20] MEDS: Enoxaparin 30 MG/0.3 ML Syringe SUBCUT SCH (11:27)
[2017-08-20] MEDS ORDERED: Acetaminophen/HYDROcodone 325-5 MG Tab PO PRN (19:26)
[2017-08-21] MEDS: Ketorolac 15 MG/ML SDV IVPUSH SCH (02:00)
[2017-08-21] MEDS: Lactated Ringers 1,000 ML IV SCH (02:58)
[2017-08-21] MEDS: Pantoprazole 40 MG Tab.CR PO SCH (06:19)
--- NOTE | 2017-08-21 07:47 | PCM.SURGPN ---
- General Info Date of Service: 08/21/17 Date of Surgery/Procedure: 08/17/17 POD#: 4 Post-Op Diagnosis: Chronic Diverticulitis Functional Status: Reports: Pain Controlled (Epidural now out) - Review of Systems Pulmonary: Reports: No Symptoms Gastrointestinal: Reports: Flatus (having BM's). Denies: Nausea, Vomiting Musculoskeletal: Denies: Leg Pain - Patient Data Vitals - Most Recent: Last Vital Signs Temp 98.5 F 08/21/17 07:30 Pulse 67 08/21/17 07:30 Resp 18 08/21/17 07:30 BP 154/83 H 08/21/17 07:30 Pulse Ox 96 08/21/17 07:30 Weight - Most Recent: 145 lb I&O - Last 24 Hours: Intake & Output 08/20/17 08/21/17 08/21/17 22:59 06:59 14:59 Intake Total 1520 418 Output Total 1700 1700 Balance -180 -1282 Med Orders - Current: Current Medications Hydrocodone Bitart/Acetaminophen ([place] 325-5 Mg) 1 - 2 tab PO Q4H PRN PRN Reason: Pain Al Hydroxide/Mg Hydroxide (Mag-Al Susp) 30 ml PO Q4H PRN PRN Reason: Heartburn Last Admin: 08/18/17 07:46 Dose: 30 ml Diphenhydramine HCl (Benadryl) 25 mg IV ONETIME PRN PRN Reason: Pruritus Enoxaparin Sodium (Lovenox) 30 mg SUBCUT Q24H [facility] Last Admin: 08/20/17 11:27 Dose: 30 mg Promethazine HCl 12.5 mg/ (Sodium Chloride) 50.5 mls @ 200 mls/hr IV Q6H PRN PRN Reason: Nausea/Vomiting Lactated Ringer's (Ringers, Lactated) 1,000 mls @ 50 mls/hr IV ASDIRECTED [facility] Last Admin: 08/21/17 02:58 Dose: 50 mls/hr Morphine Sulfate (Morphine) 2 mg IVPUSH Q1H PRN PRN Reason: PAIN Last Admin: 08/18/17 08:29 Dose: 2 mg Nalbuphine HCl (Nubain) 10 mg IVPUSH Q1H PRN PRN Reason: Pruritus Naloxone HCl (Narcan) 0.1 mg IVPUSH ONETIME PRN PRN Reason: Oversedation Ondansetron HCl (Zofran) 4 mg IVPUSH Q6H PRN PRN Reason: Nausea/Vomiting Pantoprazole Sodium (Protonix) 40 mg PO 0600 [facility] Last Admin: 08/21/17 06:19 Dose: 40 mg Sodium Chloride (Saline Flush) 10 ml FLUSH ASDIRECTED PRN PRN Reason: Keep Vein Open Discontinued Medications Cefoxitin Sodium (Mefoxin) 2 gm IV ONETIME ONE Stop: 08/17/17 11:31 Last Admin: 08/17/17 11:57 Dose: 2 gm Cefoxitin Sodium (Mefoxin) 2 gm IV Q6H [facility] Stop: 08/18/17 11:31 Last Admin: 08/18/17 12:30 Dose: 2 gm Cefoxitin Sodium (Mefoxin) 2 gm IV .STK-MED ONE Stop: 08/17/17 11:53 Dexamethasone (Dexamethasone) 8 mg IVPUSH .STK-MED ONE Stop: 08/17/17 11:53 Diphenhydramine HCl (Benadryl) 25 mg IVPUSH .STK-MED ONE Stop: 08/17/17 11:53 Fentanyl (Sublimaze) 100 mcg EPIDUR .STK-MED ONE Stop: 08/18/17 08:01 Fentanyl (Sublimaze) 200 mcg IV .STK-MED ONE Stop: 08/17/17 11:53 Glycopyrrolate (Glycopyrrolate) 0.4 mg IV .STK-MED ONE Stop: 08/17/17 11:53 Hydromorphone HCl (Dilaudid) 1 mg IV .STK-MED ONE Stop: 08/17/17 11:53 Lactated Ringer's (Ringers, Lactated) 1,000 mls @ 125 mls/hr IV ASDIRECTED [facility] Lactated Ringer's (Ringers, Lactated) 1,000 mls @ 125 mls/hr IV ASDIRECTED [facility] Last Admin: 08/17/17 11:00 Dose: 125 mls/hr Fentanyl 100 mcg/ Ropivacaine 12 mls @ as directed EPIDUR .STK-MED ONE Stop: 08/18/17 09:27 Lactated Ringer's (Ringers, Lactated) 1,000 mls @ as directed IV .STK-MED ONE Stop: 08/17/17 11:53 Ketorolac Tromethamine (Toradol) 15 mg IVPUSH Q6H PRN PRN Reason: Pain Stop: 08/22/17 13:55 Ketorolac Tromethamine (Toradol) 15 mg IVPUSH Q6H [facility] Stop: 08/23/17 02:01 Last Admin: 08/21/17 02:00 Dose: 15 mg Ketorolac Tromethamine (Toradol) 30 mg IVPUSH .STK-MED ONE Stop: 08/17/17 11:53 Midazolam HCl (Versed 1 Mg/Ml) 2 mg IV .STK-MED ONE Stop: 08/17/17 11:53 Morphine Sulfate (Duramorph Pf) 6 mg EPIDUR .STK-MED ONE Stop: 08/18/17 08:01 Morphine Sulfate (Duramorph Pf) 6 mg EPIDUR .STK-MED ONE Stop: 08/18/17 09:27 Morphine Sulfate (Duramorph Pf) 4 mg EPIDUR .STK-MED ONE Stop: 08/17/17 11:53 Neostigmine Methylsulfate (Neostigmine) 3 mg IV .STK-MED ONE Stop: 08/17/17 11:53 Ondansetron HCl (Zofran) 4 mg IVPUSH Q6H PRN PRN Reason: Nausea/Vomiting Ondansetron HCl (Zofran) 4 mg IVPUSH .STK-MED ONE Stop: 08/17/17 11:53 Pantoprazole Sodium (Protonix Iv) 40 mg IVPUSH DAILY [facility] Last Admin: 08/20/17 09:59 Dose: 40 mg Propofol (Diprivan 20 Ml) 150 mg IV .STK-MED ONE Stop: 08/17/17 11:53 Rocuronium [place] (Zemuron) 65 mg IV .STK-MED ONE Stop: 08/17/17 11:53 Sodium Chloride (Saline Flush) 10 ml FLUSH ASDIRECTED PRN PRN Reason: Keep Vein Open Succinylcholine Chloride (Quelicin) 100 mg IV .STK-MED ONE Stop: 08/17/17 11:53 - Exam Wound/Incisions: Healing Well, No Drainage. No: Erythema General: Alert, Oriented Lungs: Normal Respiratory Effort Extremities: Normal Inspection - Problem List Review Problem List Initiated/Reviewed/Updated: Yes - My Orders Last 24 Hours: Active Orders 24 hr Category Date Time Status Full Liquid Diet [DIET] Diet 08/21/17 Breakfast Active Acetaminophen/HYDROcodone [[place] 325-5 MG] Med 08/20/17 19:26 Active 1 - 2 tab PO Q4H PRN Ketorolac [Toradol] Med 08/21/17 07:45 Ordered 10 mg PO Q6H Pantoprazole [ProTONIX] Med 08/21/17 06:00 Active 40 mg PO 0600 Convert IV to Saline Lock [OM.PC] Routine Oth 08/21/17 07:43 Ordered Medication Orders Hydrocodone Bitart/Acetaminophen ([place] 325-5 Mg) 1 - 2 tab PO Q4H PRN PRN Reason: Pain Al Hydroxide/Mg Hydroxide (Mag-Al Susp) 30 ml PO Q4H PRN PRN Reason: Heartburn Last Admin: 08/18/17 07:46 Dose: 30 ml Diphenhydramine HCl (Benadryl) 25 mg IV ONETIME PRN PRN Reason: Pruritus Enoxaparin Sodium (Lovenox) 30 mg SUBCUT Q24H [facility] Last Admin: 08/20/17 11:27 Dose: 30 mg Admin: 08/19/17 08:51 Dose: 30 mg Admin: 08/18/17 08:30 Dose: 30 mg Promethazine HCl 12.5 mg/ (Sodium Chloride) 50.5 mls @ 200 mls/hr IV Q6H PRN PRN Reason: Nausea/Vomiting Lactated Ringer's (Ringers, Lactated) 1,000 mls @ 50 mls/hr IV ASDIRECTED [facility] Last Admin: 08/21/17 02:58 Dose: 50 mls/hr Infusion: 08/21/17 02:58 Dose: 50 mls/hr Infusion: 08/20/17 07:12 Dose: 50 mls/hr Admin: 08/20/17 07:08 Dose: 125 mls/hr Infusion: 08/20/17 05:09 Dose: 125 mls/hr Admin: 08/19/17 21:09 Dose: 125 mls/hr Infusion: 08/19/17 19:08 Dose: 125 mls/hr Admin: 08/19/17 11:08 Dose: 125 mls/hr Infusion: 08/19/17 11:08 Dose: 125 mls/hr Admin: 08/19/17 02:23 Dose: 125 mls/hr Infusion: 08/19/17 02:21 Dose: 125 mls/hr Admin: 08/18/17 18:21 Dose: 125 mls/hr Infusion: 08/18/17 18:21 Dose: 125 mls/hr Admin: 08/18/17 10:21 Dose: 125 mls/hr Infusion: 08/18/17 09:51 Dose: 125 mls/hr Admin: 08/18/17 01:51 Dose: 125 mls/hr Infusion: 08/18/17 01:40 Dose: 125 mls/hr Admin: 08/17/17 17:40 Dose: 125 mls/hr Morphine Sulfate (Morphine) 2 mg IVPUSH Q1H PRN PRN Reason: PAIN Last Admin: 08/18/17 08:29 Dose: 2 mg Nalbuphine HCl (Nubain) 10 mg IVPUSH Q1H PRN PRN Reason: Pruritus Naloxone HCl (Narcan) 0.1 mg IVPUSH ONETIME PRN PRN Reason: Oversedation Ondansetron HCl (Zofran) 4 mg IVPUSH Q6H PRN PRN Reason: Nausea/Vomiting Pantoprazole Sodium (Protonix) 40 mg PO 0600 [facility] Last Admin: 08/21/17 06:19 Dose: 40 mg Sodium Chloride (Saline Flush) 10 ml FLUSH ASDIRECTED PRN PRN Reason: Keep Vein Open - Assessment Assessment (Free Text/Narrative):: POD# 4 Left Colectomy - doing well - Plan Plan (Free Text/Narrative):: Increase diet Saline lock IV
[2017-08-21] MEDS: Ketorolac 10 MG Tab PO SCH ×3 (09:12→20:43)
[2017-08-21] MEDS: Enoxaparin 30 MG/0.3 ML Syringe SUBCUT SCH (09:12)
[2017-08-22] MEDS: Ketorolac 10 MG Tab PO SCH ×2 (02:21→08:44)
[2017-08-22] MEDS: Pantoprazole 40 MG Tab.CR PO SCH (06:53)
[2017-08-22] MEDS: Enoxaparin 30 MG/0.3 ML Syringe SUBCUT SCH (08:45)
--- NOTE | 2017-08-22 09:18 | PCM.SURGPN ---
- General Info Date of Service: 08/22/17 Date of Surgery/Procedure: 08/17/17 POD#: 5 Post-Op Diagnosis: Chronic Diverticulitis Functional Status: Reports: Pain Controlled (comfortable with Toradol) - Review of Systems Pulmonary: Reports: No Symptoms Gastrointestinal: Reports: Flatus (having a little more formed stools). Denies : Abdominal Pain Genitourinary: Reports: No Symptoms Musculoskeletal: Reports: No Symptoms - Patient Data Vitals - Most Recent: Last Vital Signs Temp 98.2 F 08/22/17 02:15 Pulse 58 L 08/22/17 02:15 Resp 16 08/22/17 02:15 BP 155/82 H 08/22/17 02:15 Pulse Ox 95 08/22/17 02:15 Weight - Most Recent: 145 lb I&O - Last 24 Hours: Intake & Output 08/21/17 08/22/17 08/22/17 22:59 06:59 14:59 Intake Total 100 Output Total 1400 550 200 Balance -1400 -550 -100 Med Orders - Current: Current Medications Hydrocodone Bitart/Acetaminophen ([place] 325-5 Mg) 1 - 2 tab PO Q4H PRN PRN Reason: Pain Al Hydroxide/Mg Hydroxide (Mag-Al Susp) 30 ml PO Q4H PRN PRN Reason: Heartburn Last Admin: 08/18/17 07:46 Dose: 30 ml Diphenhydramine HCl (Benadryl) 25 mg IV ONETIME PRN PRN Reason: Pruritus Enoxaparin Sodium (Lovenox) 30 mg SUBCUT Q24H [facility] Last Admin: 08/22/17 08:45 Dose: 30 mg Promethazine HCl 12.5 mg/ (Sodium Chloride) 50.5 mls @ 200 mls/hr IV Q6H PRN PRN Reason: Nausea/Vomiting Lactated Ringer's (Ringers, Lactated) 1,000 mls @ 50 mls/hr IV ASDIRECTED [facility] Last Admin: 08/21/17 02:58 Dose: 50 mls/hr Ketorolac Tromethamine (Toradol) 10 mg PO Q6H [facility] Stop: 08/26/17 08:01 Last Admin: 08/22/17 08:44 Dose: 10 mg Morphine Sulfate (Morphine) 2 mg IVPUSH Q1H PRN PRN Reason: PAIN Last Admin: 08/18/17 08:29 Dose: 2 mg Nalbuphine HCl (Nubain) 10 mg IVPUSH Q1H PRN PRN Reason: Pruritus Naloxone HCl (Narcan) 0.1 mg IVPUSH ONETIME PRN PRN Reason: Oversedation Ondansetron HCl (Zofran) 4 mg IVPUSH Q6H PRN PRN Reason: Nausea/Vomiting Pantoprazole Sodium (Protonix) 40 mg PO 0600 [facility] Last Admin: 08/22/17 06:53 Dose: 40 mg Sodium Chloride (Saline Flush) 10 ml FLUSH ASDIRECTED PRN PRN Reason: Keep Vein Open Discontinued Medications Cefoxitin Sodium (Mefoxin) 2 gm IV ONETIME ONE Stop: 08/17/17 11:31 Last Admin: 08/17/17 11:57 Dose: 2 gm Cefoxitin Sodium (Mefoxin) 2 gm IV Q6H DE[facility] Stop: 08/18/17 11:31 Last Admin: 08/18/17 12:30 Dose: 2 gm Cefoxitin Sodium (Mefoxin) 2 gm IV .STK-MED ONE Stop: 08/17/17 11:53 Dexamethasone (Dexamethasone) 8 mg IVPUSH .STK-MED ONE Stop: 08/17/17 11:53 Diphenhydramine HCl (Benadryl) 25 mg IVPUSH .STK-MED ONE Stop: 08/17/17 11:53 Fentanyl (Sublimaze) 100 mcg EPIDUR .STK-MED ONE Stop: 08/18/17 08:01 Fentanyl (Sublimaze) 200 mcg IV .STK-MED ONE Stop: 08/17/17 11:53 Fentanyl (Sublimaze) 100 mcg EPIDUR .STK-MED ONE Stop: 08/20/17 07:31 Glycopyrrolate (Glycopyrrolate) 0.4 mg IV .STK-MED ONE Stop: 08/17/17 11:53 Hydromorphone HCl (Dilaudid) 1 mg IV .STK-MED ONE Stop: 08/17/17 11:53 Lactated Ringer's (Ringers, Lactated) 1,000 mls @ 125 mls/hr IV ASDIRECTED [facility] Lactated Ringer's (Ringers, Lactated) 1,000 mls @ 125 mls/hr IV ASDIRECTED [facility] Last Admin: 08/17/17 11:00 Dose: 125 mls/hr Fentanyl 100 mcg/ Ropivacaine 12 mls @ as directed EPIDUR .STK-MED ONE Stop: 08/18/17 09:27 Lactated Ringer's (Ringers, Lactated) 1,000 mls @ as directed IV .STK-MED ONE Stop: 08/17/17 11:53 Ketorolac Tromethamine (Toradol) 15 mg IVPUSH Q6H PRN PRN Reason: Pain Stop: 08/22/17 13:55 Ketorolac Tromethamine (Toradol) 15 mg IVPUSH Q6H DE[facility] Stop: 08/23/17 02:01 Last Admin: 08/21/17 02:00 Dose: 15 mg Ketorolac Tromethamine (Toradol) 30 mg IVPUSH .STK-MED ONE Stop: 08/17/17 11:53 Midazolam HCl (Versed 1 Mg/Ml) 2 mg IV .STK-MED ONE Stop: 08/17/17 11:53 Morphine Sulfate (Duramorph Pf) 6 mg EPIDUR .STK-MED ONE Stop: 08/18/17 08:01 Morphine Sulfate (Duramorph Pf) 6 mg EPIDUR .STK-MED ONE Stop: 08/18/17 09:27 Morphine Sulfate (Duramorph Pf) 4 mg EPIDUR .STK-MED ONE Stop: 08/17/17 11:53 Morphine Sulfate (Duramorph Pf) 6 mg EPIDUR .STK-MED ONE Stop: 08/20/17 07:31 Neostigmine Methylsulfate (Neostigmine) 3 mg IV .STK-MED ONE Stop: 08/17/17 11:53 Ondansetron HCl (Zofran) 4 mg IVPUSH Q6H PRN PRN Reason: Nausea/Vomiting Ondansetron HCl (Zofran) 4 mg IVPUSH .STK-MED ONE Stop: 08/17/17 11:53 Pantoprazole Sodium (Protonix Iv) 40 mg IVPUSH DAILY [facility] Last Admin: 08/20/17 09:59 Dose: 40 mg Propofol (Diprivan 20 Ml) 150 mg IV .STK-MED ONE Stop: 08/17/17 11:53 Rocuronium Floweree (Zemuron) 65 mg IV .STK-MED ONE Stop: 08/17/17 11:53 Sodium Chloride (Saline Flush) 10 ml FLUSH ASDIRECTED PRN PRN Reason: Keep Vein Open Succinylcholine Chloride (Quelicin) 100 mg IV .STK-MED ONE Stop: 08/17/17 11:53 - Exam Wound/Incisions: Healing Well, No Drainage. No: Erythema General: Alert, Oriented Lungs: Normal Respiratory Effort GI/Abdominal Exam: Soft, Non-Tender - Problem List Review Problem List Initiated/Reviewed/Updated: Yes - My Orders Last 24 Hours: Active Orders 24 hr Category Date Time Status Soft Diet [DIET] Diet 08/22/17 Breakfast Active Medication Orders Hydrocodone Bitart/Acetaminophen ([place]wick 325-5 Mg) 1 - 2 tab PO Q4H PRN PRN Reason: Pain Al Hydroxide/Mg Hydroxide (Mag-Al Susp) 30 ml PO Q4H PRN PRN Reason: Heartburn Last Admin: 08/18/17 07:46 Dose: 30 ml Diphenhydramine HCl (Benadryl) 25 mg IV ONETIME PRN PRN Reason: Pruritus Enoxaparin Sodium (Lovenox) 30 mg SUBCUT Q24H [facility] Last Admin: 08/22/17 08:45 Dose: 30 mg Admin: 08/21/17 09:12 Dose: 30 mg Admin: 08/20/17 11:27 Dose: 30 mg Admin: 08/19/17 08:51 Dose: 30 mg Admin: 08/18/17 08:30 Dose: 30 mg Promethazine HCl 12.5 mg/ (Sodium Chloride) 50.5 mls @ 200 mls/hr IV Q6H PRN PRN Reason: Nausea/Vomiting Lactated Ringer's (Ringers, Lactated) 1,000 mls @ 50 mls/hr IV ASDIRECTED [facility] Last Admin: 08/21/17 02:58 Dose: 50 mls/hr Infusion: 08/21/17 02:58 Dose: 50 mls/hr Infusion: 08/20/17 07:12 Dose: 50 mls/hr Admin: 08/20/17 07:08 Dose: 125 mls/hr Infusion: 08/20/17 05:09 Dose: 125 mls/hr Admin: 08/19/17 21:09 Dose: 125 mls/hr Infusion: 08/19/17 19:08 Dose: 125 mls/hr Admin: 08/19/17 11:08 Dose: 125 mls/hr Infusion: 08/19/17 11:08 Dose: 125 mls/hr Admin: 08/19/17 02:23 Dose: 125 mls/hr Infusion: 08/19/17 02:21 Dose: 125 mls/hr Admin: 08/18/17 18:21 Dose: 125 mls/hr Infusion: 08/18/17 18:21 Dose: 125 mls/hr Admin: 08/18/17 10:21 Dose: 125 mls/hr Infusion: 08/18/17 09:51 Dose: 125 mls/hr Admin: 08/18/17 01:51 Dose: 125 mls/hr Infusion: 08/18/17 01:40 Dose: 125 mls/hr Admin: 08/17/17 17:40 Dose: 125 mls/hr Ketorolac Tromethamine (Toradol) 10 mg PO Q6H [facility] Stop: 08/26/17 08:01 Last Admin: 08/22/17 08:44 Dose: 10 mg Admin: 08/22/17 02:21 Dose: 10 mg Admin: 08/21/17 20:43 Dose: 10 mg Admin: 08/21/17 13:27 Dose: 10 mg Admin: 08/21/17 09:12 Dose: 10 mg Morphine Sulfate (Morphine) 2 mg IVPUSH Q1H PRN PRN Reason: PAIN Last Admin: 08/18/17 08:29 Dose: 2 mg Nalbuphine HCl (Nubain) 10 mg IVPUSH Q1H PRN PRN Reason: Pruritus Naloxone HCl (Narcan) 0.1 mg IVPUSH ONETIME PRN PRN Reason: Oversedation Ondansetron HCl (Zofran) 4 mg IVPUSH Q6H PRN PRN Reason: Nausea/Vomiting Pantoprazole Sodium (Protonix) 40 mg PO 0600 [facility] Last Admin: 08/22/17 06:53 Dose: 40 mg Admin: 08/21/17 06:19 Dose: 40 mg Sodium Chloride (Saline Flush) 10 ml FLUSH ASDIRECTED PRN PRN Reason: Keep Vein Open - Assessment Assessment (Free Text/Narrative):: POD#5 Left Colectomy - doing well - Plan Plan (Free Text/Narrative):: Discharge
[2017-08-22 10:14] VITALS: BP 157/82
== END 2017-08-22 10:25 | disposition home or self-care (01) | DRG 221 ==
LOC: FB.MS 08-17 09:27
PROVIDERS: ADMIT Surgery; ATTEND Surgery
PROC: 0DBM0ZZ Excision of Descending Colon, Open Approach (ICD-10-PCS; principal; 2017-08-17)
PROC: 0DBN0ZZ Excision of Sigmoid Colon, Open Approach (ICD-10-PCS; 2017-08-17)
PROC: 0DJD8ZZ Inspection of Lower Intestinal Tract, Via Natural or Artificial Opening Endoscopic (ICD-10-PCS; 2017-08-17)
PROC: 00HU33Z Insertion of Infusion Device into Spinal Canal, Percutaneous Approach (ICD-10-PCS; 2017-08-17)
PROC: 00HU33Z Insertion of Infusion Device into Spinal Canal, Percutaneous Approach (ICD-10-PCS; 2017-08-18)
PROC: 00HU33Z Insertion of Infusion Device into Spinal Canal, Percutaneous Approach (ICD-10-PCS; 2017-08-19)
PROC: 00HU33Z Insertion of Infusion Device into Spinal Canal, Percutaneous Approach (ICD-10-PCS; 2017-08-20)
DX: K57.32 Diverticulitis of large intestine without perforation or abscess without bleeding (principal)
CPT/HCPCS: 36415; 84132; 85014; 85018; 86850; 86900; 86901; 88307; A9270-GY; C9113; J0330; J0694; J1100; J1170; J1200; J1650; J1885; J2250; J2270; J2405; J2704; J2795; J3010; J3490; J7120

== ENCOUNTER 2018-11-22 11:27 | Day surgery (SDC) | payer BC ==
[2018-11-22] MEDS ORDERED: Lactated Ringers 1,000 ML IV ONE (11:28)
[2018-11-22] MEDS ORDERED: Lidocaine 2% 100 MG/5 ML Syringe IVPUSH ONE (11:28)
[2018-11-22] MEDS ORDERED: Propofol 200 MG/20 ML SDV IV ONE (11:28)
[2018-11-22] MEDS ORDERED: Sodium Chloride 0.9% 10 ML Syringe FLUSH PRN (11:45)
[2018-11-22] MEDS: Lactated Ringers 1,000 ML IV SCH (12:08)
--- NOTE | 2018-11-22 14:37 | PCM.PN ---
- General Info Date of Service: 11/22/18 - Review of Systems Systems Review Comment:: Patient with increasing Acid Reflux Symptoms and abdominal bloating and pain after partial colectomy here for EGD and Colonoscopy. She is medically stable to proceed. I discussed the proposed procedures with the patient. She agrees to proceed accepting risks. - Patient Data Vitals - Most Recent: Last Vital Signs Temp 98.0 F 11/22/18 11:58 Pulse 65 11/22/18 11:58 Resp 16 11/22/18 11:58 BP 155/87 H 11/22/18 11:58 Pulse Ox 98 11/22/18 11:58 Weight - Most Recent: 156 lb Med Orders - Current: Current Medications Lactated Ringer's (Ringers, Lactated) 1,000 mls @ 125 mls/hr IV ASDIRECTED [facility] Last Admin: 11/22/18 12:08 Dose: 125 mls/hr Sodium Chloride (Saline Flush) 10 ml FLUSH ASDIRECTED PRN PRN Reason: Keep Vein Open - Problem List Review Problem List Initiated/Reviewed/Updated: Yes - My Orders Last 24 Hours: My Active Orders 11/22/18 11:45 Patient Status [ADT] Routine Patient to Empty Bladder [RC] ASDIRECTED Verify Patient Consent Obtain [RC] ASDIRECTED Lactated Ringers [Ringers, Lactated] 1,000 ml IV ASDIRECTED Sodium Chloride 0.9% [Saline Flush] 10 ml FLUSH ASDIRECTED PRN Peripheral IV Insertion Adult [OM.PC] Routine 11/22/18 Breakfast Nothing Per Oral Diet [DIET] - Assessment Assessment:: GERD Increasing abdominal bloating post partial colectomy - Plan Plan:: EGD and Colonoscopy
--- NOTE | 2018-11-22 15:38 | PCM.OPNOTE ---
- General Post-Op/Procedure Note Date of Surgery/Procedure: 11/22/18 Operative Procedure(s): EGD with biopsy and Colonoscopy with Biopsy Findings: Mild reflux esophagitis Widely patent anastomosis Scattered non-inflamed diverticuli in colon Pre Op Diagnosis: GERD. Abdominal bloating Post-Op Diagnosis: Reflux esophagitis. Diverticulosis of colon. otherwise normal post op colon Anesthesia Technique: MAC Primary Surgeon: Hiren Harmon Pathology: Esophagus, Antrum, Duodenum and terminal ileum, colon EBL in mLs: 4 Complications: None Condition: Good
[2018-11-22 16:08] VITALS: BP 146/80
--- NOTE | 2018-11-22 23:13 | OR ---
DATE OF OPERATION: 11/22/2018 SURGEON: Hiren Harmon MD PREOPERATIVE DIAGNOSES: Gastroesophageal reflux disease and abdominal bloating. POSTOPERATIVE DIAGNOSES: Reflux esophagitis, diverticulosis of the colon, and widely patent colon anastomosis. OPERATION PERFORMED: Esophagogastroduodenoscopy with biopsy and colonoscopy with biopsy. INDICATIONS FOR SURGERY: This 63-year-old female has been having increased symptoms of gastroesophageal reflux. She also has been having some abdominal bloating. She is over 1 year since a left colectomy for diverticular disease and comes for EGD and colonoscopy. FINDINGS: On upper endoscopy, the patient has a mild degree of esophagitis at the GE junction. There is no stricturing or ulceration. The inflammation is mild and appears to be limited to the region of the GE junction and does not extend proximally in the esophagus. The gastric lining as well as the lining of the duodenum otherwise appear normal. On colonoscopy, the patient has scattered diverticula throughout the colon, but these do not appear to be acutely inflamed or otherwise complicated. Her sigmoid anastomosis is widely patent. There is some mild inflammation of the anastomosis consistent with healing, but no visible signs of complication and no other areas of inflammation are noted in the colon or terminal ileum. DESCRIPTION OF PROCEDURE: The patient was taken to the procedure room. She was given intravenous sedation and her throat was topically anesthetized. The gastroscope was advanced through a mouth guard into the oral cavity. The scope was then carefully advanced down through the cricopharyngeus into the esophagus, stomach, and into the duodenum, where examination to the 4th portion was performed. Random biopsies of the duodenum were taken because of the patient's symptoms. After examining the duodenum and finding it to appear normal, the scope was withdrawn back into the stomach, where full examination including retroflexed examination of the fundus was carried out. Random biopsies of the antrum were taken to rule out H. pylori. The GE junction was then carefully examined and biopsies of this area were also taken. The esophagus was then re- examined as the scope was removed. Attention was turned to colonoscopy. Digital rectal exam was performed showing no rectal masses. The Olympus colonoscope was inserted into the rectum, retroflexed examination of the rectal canal was performed. The scope was then carefully advanced easily through the anastomosis through the remaining colon to the cecum. Cecal acquisition was confirmed by noting normal internal cecal anatomy including the appendiceal orifice and ileocecal valve. The ileocecal valve was cannulated and the terminal ileum examined and it also appeared normal. Random biopsies of the terminal ileum were taken. The scope was withdrawn back into the colon and then slowly removed. During withdrawal of the scope, random biopsies of the ascending colon and transverse colon were taken. Also, biopsies of the anastomosis were taken upon withdrawal of the scope. With no sign of any complication, and after the entire remaining colon and rectum had been fully examined, the scope was removed, and the patient was taken from the procedure room in satisfactory condition. ESTIMATED BLOOD LOSS: 4 mL. COMPLICATIONS: None. PROGNOSIS: Good. /[id number] JULITO/MODL
== END 2018-11-22 16:04 | disposition home or self-care (01) ==
LOC: FB.SDS 11:27
PROVIDERS: ATTEND Surgery
DX: K21.0 Gastro-esophageal reflux disease with esophagitis (principal); K29.80 Duodenitis without bleeding; K57.30 Diverticulosis of large intestine without perforation or abscess without bleeding; K51.90 Ulcerative colitis, unspecified, without complications; I50.9 Heart failure, unspecified; Z90.49 Acquired absence of other specified parts of digestive tract; Z79.899 Other long term (current) drug therapy
CPT/HCPCS: 88305; 88342; J2001; J2704; J7120

== ENCOUNTER 2019-02-16 09:59 | Day surgery (SDC) | payer BC ==
[2019-02-16] MEDS ORDERED: Rocuronium 50 MG/5 ML Vial IV ONE (10:00)
[2019-02-16] MEDS ORDERED: diphenhydrAMINE 50 MG/ML SDV IVPUSH ONE (10:00)
[2019-02-16] MEDS ORDERED: Midazolam 1 MG/ML 2 ML SDV IV ONE (10:00)
[2019-02-16] MEDS ORDERED: Neostigmine Methylsulfate 10 MG/10 ML MDV IVPUSH ONE (10:00)
[2019-02-16] MEDS ORDERED: fentaNYL 100 MCG/2 ML SDV IV ONE (10:00)
[2019-02-16] MEDS ORDERED: Propofol 200 MG/20 ML SDV IV ONE (10:00)
[2019-02-16] MEDS ORDERED: Lactated Ringers 1,000 ML IV ONE (10:00)
[2019-02-16] MEDS ORDERED: Ketorolac 30 MG/ML SDV IVPUSH ONE (10:00)
[2019-02-16] MEDS ORDERED: Glycopyrrolate 0.2 MG/ML 5 ML MDV IV ONE (10:00)
[2019-02-16] MEDS ORDERED: Succinylcholine 200 MG/10 ML MDV IV ONE (10:00)
[2019-02-16] MEDS ORDERED: Dexamethasone 4 MG/ML 5 ML MDV IVPUSH ONE (10:00)
[2019-02-16] MEDS ORDERED: Ondansetron 4 MG/2 ML SDV IVPUSH ONE (10:00)
[2019-02-16] MEDS ORDERED: ceFAZolin 1 GM Vial IVPUSH ONE (11:30)
[2019-02-16] MEDS ORDERED: Sodium Chloride 0.9% 10 ML Syringe FLUSH PRN (11:30)
[2019-02-16] MEDS ORDERED: Lactated Ringers 1,000 ML IV SCH (11:30)
[2019-02-16] MEDS ORDERED: ceFAZolin 1 GM in Sodium Chloride 0.9% 50 ML IV ONE (12:30)
--- NOTE | 2019-02-16 12:31 | PCM.PN ---
- General Info Date of Service: 02/16/19 - Review of Systems Systems Review Comment:: 63 y/o female here for laparoscopic repair of a ventral incisional hernia. She is stable to proceed. There has been no significant changes to her health status since her recent exam. The site of the hernia is confirmed with the patient and marked. I have again discussed the proposed hernia repair with the patient. She agrees to proceed accepting risks. - Patient Data Weight - Most Recent: 162 lb 0.636 oz Lab Results Last 24 Hours: Laboratory Results - last 24 hr 02/16/19 Range/Units 10:35 Sodium 142 (135-145) mmol/L Potassium 4.3 (3.5-5.3) mmol/L Chloride 107 (100-110) mmol/L Carbon Dioxide 29 (21-32) mmol/L BUN 21 H (7-18) mg/dL Creatinine 1.1 H (0.55-1.02) mg/dL Est Cr Clr Drug Dosing 42.74 mL/min Estimated GFR (MDRD) 50 L (>60) BUN/Creatinine Ratio 19.1 (9-20) Glucose 105 (80-116) mg/dL Calcium 8.9 (8.6-10.2) mg/dL Phosphorus 4.7 H (2.6-4.6) mg/dL Albumin 3.6 (3.2-4.6) g/dL Med Orders - Current: Current Medications Lactated Ringer's (Ringers, Lactated) 1,000 mls @ 125 mls/hr IV ASDIRECTED DELL Last Admin: 02/16/19 11:05 Dose: 125 mls/hr Sodium Chloride (Saline Flush) 10 ml FLUSH ASDIRECTED PRN PRN Reason: Keep Vein Open Discontinued Medications Cefazolin Sodium (Ancef) 1 gm IVPUSH ONETIME ONE Stop: 02/16/19 11:31 - Problem List Review Problem List Initiated/Reviewed/Updated: Yes - My Orders Last 24 Hours: My Active Orders 02/15/19 15:03 Resuscitation Status Routine 02/15/19 Dinner Nothing Per Oral Diet [DIET] 02/16/19 11:30 Patient Status [ADT] Routine Patient to Empty Bladder [RC] ASDIRECTED RT Incentive Spirometry [RC] ASDIRECTED Verify Patient Consent Obtain [RC] ASDIRECTED Lactated Ringers [Ringers, Lactated] 1,000 ml IV ASDIRECTED Sodium Chloride 0.9% [Saline Flush] 10 ml FLUSH ASDIRECTED PRN Peripheral IV Insertion Adult [OM.PC] Routine Sequential Compression Device [OM.PC] Routine - Assessment Assessment:: Ventral Incisional Hernia - Plan Plan:: Laparoscopic Ventral Hernia Repair
[2019-02-16] MEDS ORDERED: Bupivacaine 0.5%/EPINEPHrine 1:200,000 50 ML MDV INJECT ONE (12:59)
[2019-02-16] MEDS ORDERED: ceFAZolin 1 GM Vial ONE (13:15)
--- NOTE | 2019-02-16 13:54 | PCM.OPNOTE ---
- General Post-Op/Procedure Note Date of Surgery/Procedure: 02/16/19 Operative Procedure(s): Laparoscopic Repair of Ventral Incisional Hernia with Composix Mesh Findings: Fascial defect at level of umbilicus with minimal weakening superiorly. Solid surrounding fascia including along lower midline incision. Pre Op Diagnosis: Ventral incisional hernia Post-Op Diagnosis: Same Anesthesia Technique: General ET Tube Primary Surgeon: Hiren Harmon Meat Packer: Rosalio Malik Reason Meat Packer Was Necessary: To assist in dissection and improve efficiency Pathology: none EBL in mLs: 25 Complications: None Condition: Good
--- NOTE | 2019-02-16 15:22 | OR ---
DATE OF OPERATION: 02/16/2019 SURGEON: Hiren Harmon MD NEW VEH[employer]LE SALES CONSULTANT: Dr. Rosalio Malik. National Investigative Producer was necessary to assist in dissection and improve efficiency. PREOPERATIVE DIAGNOSIS: Ventral incisional hernia. POSTOPERATIVE DIAGNOSIS: Ventral incisional hernia. OPERATION PERFORMED: Laparoscopic repair of ventral incisional hernia with Composix mesh. INDICATIONS FOR SURGERY: This 63-year-old female who has had a previous partial colon resection, has developed a hernia in the midline of her abdomen near the umbilicus at the superior border of her incision. This hernia is increasingly symptomatic and she comes for elective repair. FINDINGS: The patient has a localized fascial defect at the level of the umbilicus. This was approximately 3 cm in size. At the time of surgery, the hernia sac was empty. The fascial edges appeared solid circumferentially. There was minimal amount of weakness noted of the fascia just superior to that defect, but the remainder of the abdominal wall fascia including the lower portion of her midline incision appeared solid. No other intraabdominal abnormalities were noted. PROCEDURE IN DETAIL: The patient was taken to the operating room. She was given general endotracheal anesthesia and the abdomen was sterilely prepped and draped and a small incision was made in the right upper quadrant, and using a Visiport catheter, the peritoneal cavity was entered under direct visualization without difficulty. Pneumoperitoneum via this 12 mm trocar to a pressure of 15 mmHg was achieved with carbon dioxide. 5 mm trocars were placed in the left upper quadrant and right and left lower quadrants. Each trocar site was infiltrated with Marcaine prior to incision. Intra-abdominal inspection was carried out. The location of the hernia was identified and careful examination was performed, identifying this as the only fascial defect. A 4.2 x 6.2 inch oval-shaped piece of Composix mesh was selected. It was soaked in Ancef and saline and stabilizing sutures were placed at the 4 corners of this mesh. The mesh was then inserted intra-abdominally through the largest trocar and unfolded. The four localizing sutures were then brought out through the abdominal wall orienting the mesh to give good coverage over the area of the hernia centering the mesh over the fascial defect. This provided for a good margin of secure fascia underneath the mesh surrounding the hernia defect. Dissolvable tacks were then used to secure the mesh to the anterior abdominal wall with a closely spaced circumferential row of tacks being placed around the periphery of the mesh and then a more widely spaced circumferential row of mesh placed on a more central position. This secured the mesh to the anterior abdominal wall, giving good coverage over the hernia defect. Careful inspection showed no sign of any complication. The largest trocar site was then closed with a port closure device approximating the fascia with 0 Vicryl suture. Wounds were irrigated with Betadine and saline solution. Skin incisions were approximated with interrupted 4-0 Vicryl in a subcuticular stitch. Steri-Strips and benzoin were applied, followed by antibiotic ointment and sterile dressings. The patient was then awakened, extubated, and taken from the operating room in satisfactory condition. ESTIMATED BLOOD LOSS: 25 mL. COMPLICATIONS: None. PROGNOSIS: Good. /[id number] JULITO/DWIGHT
[2019-02-16 20:44] VITALS: BP 148/75; PULSE 57
== END 2019-02-16 16:52 | disposition home or self-care (01) ==
LOC: FB.SDS 09:59 → FB.MS 15:08 → FB.SDS 16:52
PROVIDERS: ATTEND Surgery
DX: K43.2 Incisional hernia without obstruction or gangrene (principal); I50.9 Heart failure, unspecified; I42.9 Cardiomyopathy, unspecified; J45.909 Unspecified asthma, uncomplicated; Z88.8 Allergy status to other drugs, medicaments and biological substances; Z90.49 Acquired absence of other specified parts of digestive tract; Z79.899 Other long term (current) drug therapy
CPT/HCPCS: 36415; 49654; 80069; 94150; C1713; C1781; J0330; J0690; J1100; J1200; J1885; J2250; J2405; J2704; J2710; J3010; J3490; J7120